=== PATIENT | female | born 1945 | race Two or more races ===

== ENCOUNTER 2017-11-02 09:34 | Outpatient (CLI) | payer OTHER | END 2017-11-02 10:32 | disposition home or self-care (01) | LOC: RAD 501 09:34 | DX: Z18.9 Retained foreign body fragments, unspecified material (principal) ==

== ENCOUNTER → 2017-11-17 07:10 | Outpatient (CLI) | payer OTHER | END | disposition home or self-care (01) | LOC: LAB 07:10 | DX: D64.89 Other specified anemias (principal) ==

== ENCOUNTER 2018-01-26 11:48 | Outpatient (CLI) | payer OTHER | END 2018-01-26 16:32 | disposition home or self-care (01) | LOC: RAD 11:48 | DX: R07.89 Other chest pain (principal) ==

== ENCOUNTER → 2018-05-31 | Outpatient (CLI) | payer OTHER | END | disposition home or self-care (01) | LOC: TOM 08:16 | DX: R10.84 Generalized abdominal pain (principal) ==

== ENCOUNTER → 2019-02-20 | Outpatient (CLI) | payer OTHER | END | disposition home or self-care (01) | LOC: TOM 09:38 | DX: R51 Headache (principal) ==

== ENCOUNTER 2019-07-17 10:37 | Outpatient (CLI) | payer OTHER | END 2019-07-17 10:46 | disposition home or self-care (01) | LOC: MAMO-SONO 10:37 | DX: Z12.31 Encounter for screening mammogram for malignant neoplasm of breast (principal); Z87.898 Personal history of other specified conditions; N60.11 Diffuse cystic mastopathy of right breast; N60.12 Diffuse cystic mastopathy of left breast ==

== ENCOUNTER 2019-07-24 10:31 | Outpatient (CLI) | payer OTHER | END 2019-07-24 10:34 | disposition home or self-care (01) | LOC: NUCLEAR 10:31 | DX: M81.0 Age-related osteoporosis without current pathological fracture (principal) ==

== ENCOUNTER 2021-02-04 12:55 | Outpatient (CLI) | payer OTHER | END 2021-02-04 13:00 | disposition home or self-care (01) | LOC: MAMO-SONO 12:55 | PROVIDERS: ATTEND Internal Medicine Cardiovascular Disease | DX: N63.11 Unspecified lump in the right breast, upper outer quadrant (principal); Z12.31 Encounter for screening mammogram for malignant neoplasm of breast; R10.9 Unspecified abdominal pain ==

== ENCOUNTER 2021-03-31 10:57 | Outpatient (CLI) | payer OTHER | END 2021-03-31 11:08 | disposition home or self-care (01) | LOC: RAD 10:57 | PROVIDERS: ATTEND Internal Medicine Hematology & Oncology | DX: M25.511 Pain in right shoulder (principal); M79.601 Pain in right arm; M79.621 Pain in right upper arm ==

== ENCOUNTER 2021-11-18 10:41 | Outpatient (CLI) | payer OTHER | END 2021-11-18 10:46 | disposition home or self-care (01) | LOC: RAD 10:41 | PROVIDERS: ATTEND Physical Medicine & Rehabilitation | DX: M54.2 Cervicalgia (principal); M25.512 Pain in left shoulder ==

== ENCOUNTER → 2022-01-28 | Outpatient (CLI) | payer OTHER | END | disposition home or self-care (01) | LOC: TOM 07:18 | PROVIDERS: ATTEND Internal Medicine Cardiovascular Disease | DX: R10.9 Unspecified abdominal pain (principal); K57.30 Diverticulosis of large intestine without perforation or abscess without bleeding ==

== ENCOUNTER 2022-02-10 09:58 | Outpatient (CLI) | payer OTHER | END 2022-02-10 09:59 | disposition home or self-care (01) | LOC: NUCLEAR 09:58 | PROVIDERS: ATTEND Internal Medicine Cardiovascular Disease | DX: M81.0 Age-related osteoporosis without current pathological fracture (principal); E55.9 Vitamin D deficiency, unspecified ==

== ENCOUNTER 2022-02-10 12:18 | Outpatient (CLI) | payer OTHER | END 2022-02-10 12:22 | disposition home or self-care (01) | LOC: MAMO-SONO 12:18 | PROVIDERS: ATTEND Internal Medicine Cardiovascular Disease | DX: Z12.31 Encounter for screening mammogram for malignant neoplasm of breast (principal); N63.11 Unspecified lump in the right breast, upper outer quadrant ==

== ENCOUNTER 2022-02-12 08:48 | Outpatient (CLI) | payer OTHER | END 2022-02-12 08:54 | disposition home or self-care (01) | LOC: RX STUDY 08:48 | PROVIDERS: ATTEND Internal Medicine Cardiovascular Disease | DX: R10.9 Unspecified abdominal pain (principal) ==

== ENCOUNTER 2023-02-17 08:01 | Outpatient (CLI) | payer OTHER | END 2023-02-17 08:11 | disposition home or self-care (01) | LOC: MAMO-SONO 08:01 | PROVIDERS: ATTEND Internal Medicine Cardiovascular Disease | DX: N63.11 Unspecified lump in the right breast, upper outer quadrant (principal) ==

== ENCOUNTER 2023-04-27 08:20 | Inpatient (IN) | payer OTHER ==
[~2023-04-27] VITALS: Ht 157.5 cm; Wt 503.5 kg
[2023-04-27] MEDS ORDERED: LOSARTAN POTASS50 MG PO (08:51)
[2023-04-27] MEDS ORDERED: LATANOPROST2.5 ML OP (08:52)
[2023-04-27] MEDS ORDERED: AMMONIUM LACTA385 GM TP (08:52)
[2023-04-27] MEDS ORDERED: ROSUVASTATIN CAL5 MG PO (08:53)
[2023-05-21] MEDS ORDERED: ATENOLOL25 MG PO (16:02)
[2023-05-21] MEDS ORDERED: CARAFATE1 GM PO (16:02)
[2023-05-21] MEDS ORDERED: POM (MEDICAMENTO EN OP (16:02)
[2023-05-21] MEDS ORDERED: LOSARTAN POTASS50 MG PO (16:02)
[2023-05-21] MEDS ORDERED: AMMONIUM LACTA385 GM TP (16:02)
[2023-05-21] MEDS ORDERED: ROSUVASTATIN CAL5 MG PO (16:02)
[2023-05-21] MEDS ORDERED: LATANOPROST2.5 ML OP (16:02)
[2023-05-21] MEDS ORDERED: SPIRONOLACTONE25 MG PO (16:02)
[2023-05-21] MEDS ORDERED: Procardia Xl 30MG TA PO (16:02)
[2023-05-21] MEDS ORDERED: SIMETHICONE125 M1 PO (16:02)
[2023-05-21] MEDS ORDERED: INTESTINEX680 M1 PO (16:02)
== END 2023-05-21 16:46 | disposition home or self-care (01) | DRG 329 ==
LOC: ER 08:20 → MEDJ 18:28 → MEDI 18:28 → MEDJ 18:56 → ICU 05-08 01:02 → SURG 05-15 21:10 → ICU 05-15 21:11 → SURH 05-15 21:38
PROVIDERS: Surgery; ADMIT Internal Medicine; ATTEND Internal Medicine
PROC: 02HV33Z Insertion of Infusion Device into Superior Vena Cava, Percutaneous Approach (ICD-10-PCS; 2023-05-02)
PROC: 0W9J0ZZ Drainage of Pelvic Cavity, Open Approach (ICD-10-PCS; 2023-05-07)
PROC: 0DBB0ZZ Excision of Ileum, Open Approach (ICD-10-PCS; 2023-05-07)
PROC: 0DB80ZZ Excision of Small Intestine, Open Approach (ICD-10-PCS; 2023-05-07)
PROC: 5A1935Z Respiratory Ventilation, Less than 24 Consecutive Hours (ICD-10-PCS; 2023-05-07)
PROC: 0DTF0ZZ Resection of Right Large Intestine, Open Approach (ICD-10-PCS; principal; 2023-05-07 17:30)
PROC: 30233N1 Transfusion of Nonautologous Red Blood Cells into Peripheral Vein, Percutaneous Approach (ICD-10-PCS; 2023-05-09)
PROC: BW21YZZ Computerized Tomography (CT Scan) of Abdomen and Pelvis using Other Contrast (ICD-10-PCS; 2023-05-09)
DX: K56.51 Intestinal adhesions [bands], with partial obstruction (principal); K55.029 Acute infarction of small intestine, extent unspecified; K63.1 Perforation of intestine (nontraumatic); K65.1 Peritoneal abscess; R65.21 Severe sepsis with septic shock; J90 Pleural effusion, not elsewhere classified; D64.9 Anemia, unspecified; I95.81 Postprocedural hypotension; E87.6 Hypokalemia; I10 Essential (primary) hypertension; B96.89 Other specified bacterial agents as the cause of diseases classified elsewhere

== ENCOUNTER 2023-06-18 10:58 | Outpatient (CLI) | payer OTHER ==
[~2023-06-18 10:58] MED LIST: AMMONIUM LACTA385 GM TP; ATENOLOL25 MG PO; CARAFATE1 GM PO; INTESTINEX680 M1 PO; LATANOPROST2.5 ML OP; LOSARTAN POTASS50 MG PO; POM (MEDICAMENTO EN OP; Procardia Xl 30MG TA PO; ROSUVASTATIN CAL5 MG PO; SIMETHICONE125 M1 PO; SPIRONOLACTONE25 MG PO
== END 2023-06-18 11:13 | disposition home or self-care (01) ==
LOC: TOM 10:58
PROVIDERS: ATTEND Psychiatry & Neurology Clinical Neurophysiology
DX: G31.84 Mild cognitive impairment of uncertain or unknown etiology (principal)

== ENCOUNTER 2024-01-11 11:37 | Outpatient (CLI) | payer OTHER | END 2024-01-11 11:39 | disposition home or self-care (01) | LOC: TOM 11:37 | DX: K46.9 Unspecified abdominal hernia without obstruction or gangrene (principal); R10.9 Unspecified abdominal pain; Z51.89 Encounter for other specified aftercare ==

== ENCOUNTER 2024-10-18 11:44 | Outpatient (CLI) | payer OTHER | END 2024-10-18 11:50 | disposition home or self-care (01) | LOC: RAD 11:44 | PROVIDERS: ATTEND Internal Medicine Cardiovascular Disease | DX: M46.47 Discitis, unspecified, lumbosacral region (principal) ==